=== PATIENT | female | born 1980 | race Two or more races ===

== ENCOUNTER → 2017-07-22 | Outpatient (CLI) | payer OTHER ==
[~2017-07-22] MED LIST: BIRTH CONTROL PO; ONDA4TAB13 SL; OXYC1TAB7 PO; TAMS0.4C2 PO
== END ==
LOC: RAD 09:38
PROVIDERS: ATTEND Obstetrics & Gynecology
DX: O36.8390 Maternal care for abnormalities of the fetal heart rate or rhythm, unspecified trimester, not applicable or unspecified (principal); Z3A.00 Weeks of gestation of pregnancy not specified
CPT/HCPCS: 76801

== ENCOUNTER 2017-07-28 05:53 | Observation (INO) | payer OTHER ==
[~2017-07-28] VITALS: Ht 157.5 cm; Wt 63.0 kg
[2017-07-28] MEDS ORDERED: ASPIRIN 81 MG TABLET CHEW PO ONE (06:30)
[2017-07-28] MEDS ORDERED: SODIUM CHLORIDE FLUSH 10ML SYR IVF ONE (06:30)
[2017-07-28] MEDS ORDERED: ASPIRIN 81 MG TABLET CHEW ONE (06:31)
[2017-07-28 06:37] LABS: BASOPHILS # (AUTO) 0.11 x10^3/uL (0-0.1); BASOPHILS % (AUTO) 1 % (0-1); EOSINOPHILS # (AUTO) 0.19 x10^3/uL (0-0.4); EOSINOPHILS % (AUTO) 2 % (1-7); LYMPHOCYTES # (AUTO) 2.05 x10^3/uL (1-3.4); LYMPHOCYTES % (AUTO) 23 % (22-44); MD NO; MEAN CORPUSCULAR HEMOGLOBIN 31.8 pg (27.0-34.8); MEAN CORPUSCULAR VOLUME 93.6 fL (80-100); MEAN PLATELET VOLUME 9.3 fL (7.4-10.4); MONOCYTES # (AUTO) 0.72 x10^3/uL (0.2-0.8); MONOCYTES % (AUTO) 8 % (2-9); NEUTROPHILS # (AUTO) 5.89 x10^3/uL (1.8-6.8); NEUTROPHILS % (AUTO) 66 % (42-75); PLATELET COUNT 210 x10^3/uL (130-400); RED BLOOD COUNT 3.85 x10^6/uL (3.82-5.3); RED CELL DISTRIBUTION WIDTH 13.1 % (9.6-15.2)
[2017-07-28] MEDS ORDERED: ASPI-515 PO (06:38)
[2017-07-28 06:51] LABS: ALANINE AMINOTRANSFERASE 38 U/L (12-78); ALBUMIN 3.3 g/dL (3.4-5.0); ANION GAP 8 mmol/L (5-15); CALCIUM 8.5 mg/dL (8.5-10.1); CHLORIDE 107 mmol/L (98-107); CREATININE 0.72 mg/dL (0.55-1.02)
[2017-07-28 06:55] LABS: ALKALINE PHOSPHATASE 84 U/L (45-117); BILIRUBIN,TOTAL 0.3 mg/dL (0.2-1.0); TOTAL PROTEIN 7.1 g/dL (6.4-8.2); TROPONIN I < 0.015 ng/mL (0.000-0.045)
[2017-07-28 07:44] LABS: INTERNATIONAL NORMALIZED RATIO 0.99 (0.93-1.1); PROTHROMBIN TIME 10.2 Seconds (9.6-11.5)
[2017-07-28 08:22] LABS: MICROSCOPIC AUTO
[2017-07-28 08:34] LABS: CULTURE INDICATED? YES
[2017-07-28] MEDS ORDERED: ONDANSETRON ODT 4 MG PO PRN (09:00)
[2017-07-28] MEDS ORDERED: DOCUSATE 100 MG CAPSULE PO PRN (09:00)
[2017-07-28] MEDS ORDERED: NITROGLYCERIN 0.4 MG/SPRAY SL PRN (09:00)
[2017-07-28] MEDS ORDERED: ACETAMINOPHEN 325 MG TABLET PO PRN (09:00)
[2017-07-28] MEDS ORDERED: NITROGLYCERIN 0.4 MG BOTTLE (25 TABS) SL PRN (09:00)
[2017-07-28] MEDS ORDERED: POLYETHYLENE GLYCOL 17 GM PACKET PO PRN (09:00)
[2017-07-28 09:18] VITALS: BP 100/67
[2017-07-28] MEDS: ENOXAPARIN 40 MG/0.4 ML SQ SCH (09:30)
[2017-07-28] MEDS: SODIUM CHLORIDE 0.9% 1,000 ML IV SCH (10:58)
[2017-07-28] MEDS ORDERED: OMNIPAQUE 350 MG/ML, 100ML BOTTLE ONE (11:58)
[2017-07-28 12:34] LABS: TROPONIN I < 0.015 ng/mL (0.000-0.045)
[2017-07-28 13:51] VITALS: BP 90/57
[2017-07-28 16:13] LABS: AMPHETAMINE SCREEN, URINE Negative (Negative); BARBITURATE SCREEN, URINE Negative (Negative); BENZODIAZEPINE SCREEN, URINE Negative (Negative); CANNABINOID SCREEN, URINE Negative (Negative); COCAINE SCREEN, URINE Negative (Negative); METHADONE SCREEN, URINE Negative (Negative); OPIATE SCREEN, URINE Negative (Negative)
[2017-07-28 18:50] LABS: TROPONIN I < 0.015 ng/mL (0.000-0.045)
[2017-07-28 19:31] VITALS: BP 101/65
[2017-07-29 01:37] VITALS: BP 90/56
[2017-07-29] MEDS ORDERED: ASPIRIN 325 MG TABLET EC PO SCH (06:00)
[2017-07-29] MEDS: SODIUM CHLORIDE 0.9% 1,000 ML IV SCH ×3 (06:31→15:36)
[2017-07-29 07:21] VITALS: BP 80/46
[2017-07-29] MEDS ORDERED: MAALOX/HYOSCYAMINE/LIDOCAINE 45 ML BTL PO ONE (08:00)
[2017-07-29 08:28] VITALS: BP 89/60
[2017-07-29] MEDS: ENOXAPARIN 40 MG/0.4 ML SQ SCH (08:29)
[2017-07-29] MEDS ORDERED: REGADENOSON 0.4 MG/5 ML SYRINGE ONE (09:21)
[2017-07-29] MEDS ORDERED: LOSA25TA2 PO (13:36)
[2017-07-29 13:37] VITALS: BP 91/62
[2017-07-29 14:05] LABS: TROPONIN I < 0.015 ng/mL (0.000-0.045)
[2017-07-30] MEDS ORDERED: LOSARTAN 25MG TABLET PO SCH (09:00)
== END 2017-07-29 16:52 | disposition home or self-care (01) ==
LOC: ED 07:11 → INTOOBSV 08:18 → EDIP 08:18 → 5SO 09:09
PROVIDERS: ADMIT Family Medicine; ATTEND Family Medicine
DX: R07.89 Other chest pain (principal); R06.00 Dyspnea, unspecified; O03.9 Complete or unspecified spontaneous abortion without complication; I11.9 Hypertensive heart disease without heart failure; I25.2 Old myocardial infarction; I25.5 Ischemic cardiomyopathy
CPT/HCPCS: 36415; 71045; 71275; 78452; 80053; 80307; 81001; 84484; 84702; 84703; 85025; 85379; 85610; 87086; 93005; 93017; 93306; 96360; 96361; 99285; A9502; C9898; G0378; J2785; J7030; Q9967

== ENCOUNTER 2017-11-16 16:26 | Emergency (ER) | payer OTHER ==
[~2017-11-16] VITALS: Ht 157.5 cm; Wt 60.9 kg
[~2017-11-16 16:26] MED LIST changes: +ASPI-515 PO; +LOSA25TA2 PO
[2017-11-16] MEDS ORDERED: MAALOX/HYOSCYAMINE/LIDOCAINE 45 ML BTL PO ONE (17:00)
[2017-11-16 17:14] LABS: BASOPHILS # (AUTO) 0.03 x10^3/uL (0-0.1); BASOPHILS % (AUTO) 0 % (0-1); EOSINOPHILS # (AUTO) 0.12 x10^3/uL (0-0.4); EOSINOPHILS % (AUTO) 1 % (1-7); LYMPHOCYTES # (AUTO) 2.09 x10^3/uL (1-3.4); LYMPHOCYTES % (AUTO) 19 % (22-44); MD NO; MEAN CORPUSCULAR HEMOGLOBIN 31.5 pg (27.0-34.8); MEAN CORPUSCULAR HGB CONC 33.9 g/dL (32.4-35.8); MEAN CORPUSCULAR VOLUME 93.1 fL (80-100); MEAN PLATELET VOLUME 9.9 fL (7.4-10.4); MONOCYTES # (AUTO) 0.76 x10^3/uL (0.2-0.8); MONOCYTES % (AUTO) 7 % (2-9); NEUTROPHILS % (AUTO) 73 % (42-75); PLATELET COUNT 258 x10^3/uL (130-400); RED CELL DISTRIBUTION WIDTH 13.1 % (9.6-15.2)
[2017-11-16] MEDS ORDERED: MAALOX/HYOSCYAMINE/LIDOCAINE 45 ML BTL ONE (17:21)
[2017-11-16 17:23] LABS: CHLORIDE 107 mmol/L (98-107)
[2017-11-16 17:33] LABS: ALANINE AMINOTRANSFERASE 40 U/L (12-78); ALBUMIN 3.7 g/dL (3.4-5.0); ALKALINE PHOSPHATASE 117 U/L (45-117); ANION GAP 10 mmol/L (5-15); BILIRUBIN,TOTAL 0.2 mg/dL (0.2-1.0); CREATININE 0.55 mg/dL (0.55-1.02); TOTAL PROTEIN 7.7 g/dL (6.4-8.2); TROPONIN I < 0.015 ng/mL (0.000-0.045)
[2017-11-16 17:36] LABS: MICROSCOPIC NOT IND
[2017-11-16 17:38] LABS: CULTURE INDICATED? NO
[2017-11-16 18:04] VITALS: BP 109/75
== END 2017-11-16 18:17 | disposition home or self-care (01) ==
LOC: ED 17:45
DX: R07.89 Other chest pain (principal); R19.7 Diarrhea, unspecified; R10.84 Generalized abdominal pain; I25.2 Old myocardial infarction; Z90.49 Acquired absence of other specified parts of digestive tract
CPT/HCPCS: 36415; 71045; 80053; 81003; 83690; 84484; 84703; 85025; 93005; 99285

== ENCOUNTER 2018-01-01 09:37 | Emergency (ER) | payer OTHER ==
[~2018-01-01] VITALS: Ht 157.5 cm; Wt 61.2 kg
[2018-01-01 11:00] LABS: BASOPHILS # (AUTO) 0.03 x10^3/uL (0-0.1); BASOPHILS % (AUTO) 0 % (0-1); EOSINOPHILS # (AUTO) 0.13 x10^3/uL (0-0.4); EOSINOPHILS % (AUTO) 2 % (1-7); LYMPHOCYTES # (AUTO) 1.72 x10^3/uL (1-3.4); LYMPHOCYTES % (AUTO) 20 % (22-44); MD NO; MEAN CORPUSCULAR HEMOGLOBIN 31.7 pg (27.0-34.8); MEAN CORPUSCULAR HGB CONC 34.2 g/dL (32.4-35.8); MEAN CORPUSCULAR VOLUME 92.9 fL (80-100); MEAN PLATELET VOLUME 9.3 fL (7.4-10.4); MONOCYTES # (AUTO) 0.66 x10^3/uL (0.2-0.8); MONOCYTES % (AUTO) 8 % (2-9); NEUTROPHILS # (AUTO) 6.13 x10^3/uL (1.8-6.8); NEUTROPHILS % (AUTO) 71 % (42-75); PLATELET COUNT 197 x10^3/uL (130-400); RED BLOOD COUNT 4.11 x10^6/uL (3.82-5.3); RED CELL DISTRIBUTION WIDTH 13.6 % (9.6-15.2)
[2018-01-01 11:10] LABS: ALBUMIN 3.2 g/dL (3.4-5.0); ANION GAP 7 mmol/L (5-15); CALCIUM 8.8 mg/dL (8.5-10.1); CHLORIDE 109 mmol/L (98-107)
[2018-01-01 11:15] LABS: ALANINE AMINOTRANSFERASE 43 U/L (12-78); ALKALINE PHOSPHATASE 95 U/L (45-117); BILIRUBIN,TOTAL 0.5 mg/dL (0.2-1.0); CREATININE 0.65 mg/dL (0.55-1.02); TOTAL PROTEIN 6.7 g/dL (6.4-8.2); TROPONIN I < 0.015 ng/mL (0.000-0.045)
[2018-01-01 11:20] VITALS: BP 101/69
== END 2018-01-01 12:19 | disposition home or self-care (01) ==
LOC: ED 11:31
DX: M94.0 Chondrocostal junction syndrome [Tietze] (principal); I25.10 Atherosclerotic heart disease of native coronary artery without angina pectoris; I25.2 Old myocardial infarction
CPT/HCPCS: 36415; 71046; 80053; 84484; 85025; 93005; 99285

== ENCOUNTER 2018-02-19 09:13 | Emergency (ER) | payer OTHER ==
[~2018-02-19] VITALS: Ht 152.4 cm; Wt 61.0 kg
[2018-02-19] MEDS ORDERED: LORazepam 1MG TABLET PO ONE (11:00)
[2018-02-19] MEDS ORDERED: KETOROLAC 30 MG/1 ML IVPush ONE (11:00)
[2018-02-19 11:07] LABS: BASOPHILS # (AUTO) 0.04 x10^3/uL (0-0.1); BASOPHILS % (AUTO) 1 % (0-1); EOSINOPHILS # (AUTO) 0.12 x10^3/uL (0-0.4); EOSINOPHILS % (AUTO) 2 % (1-7); LYMPHOCYTES # (AUTO) 1.63 x10^3/uL (1-3.4); LYMPHOCYTES % (AUTO) 20 % (22-44); MD NO; MEAN CORPUSCULAR HEMOGLOBIN 31.6 pg (27.0-34.8); MEAN CORPUSCULAR HGB CONC 33.9 g/dL (32.4-35.8); MEAN CORPUSCULAR VOLUME 93.3 fL (80-100); MEAN PLATELET VOLUME 9.7 fL (7.4-10.4); MONOCYTES # (AUTO) 0.56 x10^3/uL (0.2-0.8); MONOCYTES % (AUTO) 7 % (2-9); NEUTROPHILS # (AUTO) 5.92 x10^3/uL (1.8-6.8); NEUTROPHILS % (AUTO) 72 % (42-75); PLATELET COUNT 243 x10^3/uL (130-400); RED BLOOD COUNT 4.04 x10^6/uL (3.82-5.3); RED CELL DISTRIBUTION WIDTH 13.7 % (9.6-15.2)
[2018-02-19] MEDS ORDERED: KETOROLAC 30 MG/1 ML ONE (11:11)
[2018-02-19] MEDS ORDERED: LORazepam 1MG TABLET ONE (11:11)
[2018-02-19 11:15] LABS: PROTHROMBIN TIME 10.4 Seconds (9.6-11.5)
[2018-02-19 12:45] LABS: ALBUMIN 3.4 g/dL (3.4-5.0); ANION GAP 9 mmol/L (5-15); CALCIUM 8.9 mg/dL (8.5-10.1); CHLORIDE 108 mmol/L (98-107)
[2018-02-19 13:10] LABS: ALANINE AMINOTRANSFERASE 30 U/L (12-78); ALKALINE PHOSPHATASE 101 U/L (45-117); BILIRUBIN,TOTAL 0.2 mg/dL (0.2-1.0); TROPONIN I < 0.015 ng/mL (0.000-0.045)
[2018-02-19 13:35] VITALS: BP 100/70
== END 2018-02-19 14:00 | disposition home or self-care (01) ==
LOC: ED 13:45
DX: R07.89 Other chest pain (principal)
CPT/HCPCS: 36415; 71045; 80053; 83690; 84484; 84703; 85025; 85610; 93005; 96374; 99285; J1885; 23650

== ENCOUNTER 2018-06-18 08:25 | Emergency (ER) | payer OTHER ==
[~2018-06-18] VITALS: Ht 157.5 cm; Wt 61.2 kg
[2018-06-18 08:33] VITALS: BP 107/63
--- NOTE | 2018-06-18 08:50 | NUR ---
MD EXAMINING PT. PT HAS HAD RIGHT SHOULDER AND ARM PAIN FOR 6 MONTHS. PT HAS SEEN HERE FOR SAME VARIOUS TIMES IN THE LAST 6 MONTHS
[2018-06-18] MEDS ORDERED: KETOROLAC 30 MG/1 ML IM ONE (09:00)
[2018-06-18] MEDS ORDERED: KETOROLAC 30 MG/1 ML ONE ×2 (09:07→09:15)
--- NOTE | 2018-06-18 09:39 | NUR ---
Patient given discharge instructions and they have confirmed that they understand the instructions. Patient ambulatory with steady gait. translated. Emphasized importance of calling for an ortho consult that has been provided. Both Verb. understanding
== END 2018-06-18 09:54 | disposition home or self-care (01) ==
LOC: ED 09:46
DX: M25.511 Pain in right shoulder (principal); I25.2 Old myocardial infarction
CPT/HCPCS: 73030; 93005; 96372; 99283; J1885